=== PATIENT | female | born 1960 | race Two or more races ===

== ENCOUNTER 2023-03-13 17:05 | Inpatient (IN) | payer MEDICAID ==
[~2023-03-13] VITALS: Ht 162.6 cm; Wt 91.4 kg
[2023-03-13 18:30] VITALS: PULSE 103; RESP 12; O2SAT 93
[2023-03-13 18:38] LABS: Basophils # (auto) 0 10 ^3/uL (0-0.2); Basophils % (auto) 0.1 % (0.0-2.0); Eosinophils # (auto) 0 10 ^3/uL (0-0.8); Eosinophils % (auto) 0.1 % (0.0-7.0); Hemoglobin 9.5 g/dL (12.2-16.2); Lymphocytes # (auto) 1.7 10 ^3/uL (0.4-5.4); Mean Corpuscular Volume 85.5 fL (80.0-100.0); Monocytes # (auto) 1.1 10 ^3/uL (0-1.3); Monocytes % (auto) 6.2 % (0.0-12.0); Nucleated Red Blood Cells % 0.1 %
[2023-03-13 18:40] LABS: Hematocrit 31.1 % (36.0-46.0); Lymphocytes % (auto) 9.5 % (10.0-50.0); Mean Corpuscular Hemoglobin 26.2 pg (28.0-32.0); Mean Corpuscular Hgb Conc. 30.7 g/dL (32.0-36.0); Neutrophils # (auto) 14.7 10 ^3/uL (1.6-8.6); Neutrophils % (auto) 84.1 % (37.0-80.0); Red Blood Cells 3.64 10^6/uL (4.0-5.20); Red Cell Distribution Width 19.3 % (11.8-14.3); White Blood Cell 17.5 10^3/uL (4.4-10.8)
[2023-03-13] MEDS: SODIUM CHLORIDE 0.9% 1,000 ML IV ONE (18:41)
[2023-03-13 18:49] LABS: Urine Epithelial Cast None Seen /hpf (<5)
[2023-03-13 18:54] LABS: Urine Bacteria FEW /hpf (None Seen); Urine Blood 2+ /uL (Negative); Urine Budding Yeast MODERATE /hpf (None Seen); Urine Clarity HAZY (Clear); Urine Color Yellow (Yellow); Urine Protein, UAD 2+ (Negative); Urine Specific Gravity 1.022 (1.001-1.035); Urine Urobilinogen Normal (Negative); Urine WBC 83 /hpf (0 - 5)
[2023-03-13 18:55] LABS: Alanine Aminotransferase 13 U/L (7-40); Albumin 2.4 g/dL (3.2-4.8); Alkaline Phosphatase 134 U/L (46-116); Anion Gap 7 (5-15); Aspartate Aminotransferase 19 U/L (13-40); BUN/Creatinine Ratio 18.3 (10.0-20.0); Bilirubin, Total < 0.2 mg/dL (0.2-1.0); Blood Urea Nitrogen 15 mg/dL (9-23); Calcium 8.1 mg/dL (8.7-10.4); Carbon Dioxide 22 mmol/L (20-30); Chloride 108 mmol/L (98-107); Glucose 181 mg/dL (74-106); Lipase 21 U/L (12-53); Potassium 4.1 mmol/L (3.5-5.1); Sodium 137 mmol/L (136-145); Total Protein 4.6 g/dL (5.7-8.2)
[2023-03-13 19:30] VITALS: PULSE 98; RESP 14; O2SAT 98
[2023-03-13] MEDS ORDERED: HYDROcodone-ACET 5/325MG TAB PO PRN (21:30)
[2023-03-13] MEDS ORDERED: DOCUSATE SOD 100 MG CAP PO PRN (21:30)
[2023-03-13] MEDS ORDERED: TEMAZEPAM 15 MG CAP PO PRN (21:30)
[2023-03-13] MEDS ORDERED: MORPHINE SULFATE INJ 2 MG/ml SYRG IV PRN (21:30)
[2023-03-13] MEDS ORDERED: DEXTROSE (50%) 50ML SYRG IV PRN (21:30)
[2023-03-13] MEDS ORDERED: LORazepam 0.5 MG TAB PO PRN (21:30)
[2023-03-13] MEDS: HYDROmorphone HCL 2 MG/ML VL/or syr IM ONE (21:38)
[2023-03-13] MEDS: ONDANSETRON ODT 4 MG TAB PO ONE (21:38)
[2023-03-13] MEDS: KETOROLAC TROMETH 30 MG/ML 1ML VIAL IV ONE (21:42)
[2023-03-13] MEDS: SODIUM CHLORIDE 0.9% 1,000 ML IV SCH (22:23)
[2023-03-13] MEDS: cefTRIAXone 1GM/50ML D5W 50 ML IV NR (22:57)
[2023-03-13] MEDS: CEFTRIAXONE SODIUM 2 GM in D5W 5% 100 ML IV ONE (22:58)
[2023-03-13] MEDS: ACCU-CHEK COMFORT CURVE STRIP VI SCH (23:59)
[2023-03-14] MEDS: InsuLIN REG 1unit/0.01ml Soln (100units/ml) SC SCH (00:02)
[2023-03-14 05:39] LABS: Basophils # (auto) 0.1 10 ^3/uL (0-0.2); Basophils % (auto) 0.3 % (0.0-2.0); Hematocrit 29.7 % (36.0-46.0); Lymphocytes # (auto) 2.2 10 ^3/uL (0.4-5.4); Neutrophils # (auto) 14.7 10 ^3/uL (1.6-8.6); Red Cell Distribution Width 19.3 % (11.8-14.3)
[2023-03-14 05:43] LABS: Anion Gap 7 (5-15); Carbon Dioxide 24 mmol/L (20-30); Chloride 108 mmol/L (98-107); Potassium 3.9 mmol/L (3.5-5.1); Sodium 139 mmol/L (136-145)
[2023-03-14 05:44] LABS: Calcium 8.8 mg/dL (8.5-10.1); Eosinophils # (auto) 0 10 ^3/uL (0-0.8); Eosinophils % (auto) 0.3 % (0.0-7.0); Hemoglobin 9.2 g/dL (12.2-16.2); Mean Corpuscular Hemoglobin 27.1 pg (28.0-32.0); Mean Corpuscular Volume 87.3 fL (80.0-100.0); Monocytes # (auto) 1.5 10 ^3/uL (0-1.3); Monocytes % (auto) 8.1 % (0.0-12.0); Neutrophils % (auto) 79.3 % (37.0-80.0); White Blood Cell 18.6 10^3/uL (4.4-10.8)
[2023-03-14 05:49] LABS: BUN/Creatinine Ratio 14.9 (10.0-20.0); Blood Urea Nitrogen 14 mg/dL (9-23); Glucose 130 mg/dL (74-106); Triglycerides 92 mg/dL (< 150)
[2023-03-14 05:50] LABS: LDL Cholesterol 38 mg/dL (< 100)
[2023-03-14 05:51] LABS: Cholesterol 79 mg/dL (< 200); HDL Cholesterol 24 mg/dL (40-59)
[2023-03-14 07:35] VITALS: PULSE 95; RESP 14; O2SAT 95
[2023-03-14] MEDS: cefTRIAXone 1GM/50ML D5W 50 ML IV SCH (10:42)
[2023-03-14] MEDS: ENOXAPARIN SOD 40 MG/0.4 ML SYRINGE SC SCH (10:42)
[2023-03-14] MEDS ORDERED: VANCOMYCIN PER PHARMACY 0 MG IV SCH (16:30)
[2023-03-14 17:26] VITALS: O2SAT 97
[2023-03-14 17:42] VITALS: BP 129/59; PULSE 105; RESP 16; TEMP 98.5; O2SAT 100
[2023-03-14] MEDS: VANCOMYCIN 1GM/200ML 200 ML IV ONE (17:47)
[2023-03-14 20:00] VITALS: BP 121/37; PULSE 101; RESP 17; TEMP 98.6; O2SAT 97
[2023-03-14 22:00] VITALS: BP 121/37; PULSE 101; RESP 17; TEMP 98.6; O2SAT 98
[2023-03-14] MEDS: MAALOX PLUS or MAALOX 30 ML PO PRN (22:28)
[2023-03-15] VITALS (7 sets, daily range): BP systolic 109–163; BP diastolic 44–65; PULSE 62–98; RESP 16–20; TEMP 97.9–98.4; O2SAT 93–99
[2023-03-15] MEDS: ACETAMINOPHEN 325 MG TAB PO PRN (01:43)
[2023-03-15] MEDS: ONDANSETRON HCL 4 MG/2 ML VIAL IV PRN (02:23)
[2023-03-15] MEDS: VANCOMYCIN 1GM/200ML 200 ML IV SCH (05:35)
[2023-03-15 06:13] LABS: Albumin 2.4 g/dL (3.2-4.8); Alkaline Phosphatase 131 U/L (46-116); Anion Gap 10 (5-15); Aspartate Aminotransferase 10 U/L (13-40); BUN/Creatinine Ratio 23.8 (10.0-20.0); Blood Urea Nitrogen 19 mg/dL (9-23); Calcium 8.4 mg/dL (8.5-10.1); Carbon Dioxide 22 mmol/L (20-30); Chloride 106 mmol/L (98-107); Glucose 116 mg/dL (74-106); Potassium 3.7 mmol/L (3.5-5.1); Sodium 138 mmol/L (136-145)
[2023-03-15 06:14] LABS: Bilirubin, Total 0.2 mg/dL (0.2-1.0); Total Protein 4.6 g/dL (5.7-8.2)
[2023-03-15 06:17] LABS: Alanine Aminotransferase < 9 U/L (7-40)
[2023-03-15] MEDS: MICAFUNGIN SODIUM 100 MG in SODIUM CHL 0.9% 100 ML IV SCH (14:52)
[2023-03-15] MEDS: METOCLOPRAMIDE HCL 5MG/ml INJ 2ml VIAL IV ONE (16:15)
[2023-03-15] MEDS: METOCLOPRAMIDE HCL 5MG/ml INJ 2ml VIAL IV SCH (21:41)
[2023-03-15] MEDS: MUPIROCIN 2% OINT 15gm or 22gm FOR MRSA NARES EACHNOSTRI SCH (21:42)
[2023-03-16 04:14] LABS: Basophils # (auto) 0.1 10 ^3/uL (0-0.2); Basophils % (auto) 0.5 % (0.0-2.0); Hematocrit 25.3 % (36.0-46.0); Monocytes # (auto) 0.8 10 ^3/uL (0-1.3); Monocytes % (auto) 5.9 % (0.0-12.0); Red Blood Cells 2.99 10^6/uL (4.0-5.20)
[2023-03-16 04:16] LABS: Eosinophils # (auto) 0.1 10 ^3/uL (0-0.8); Hemoglobin 7.9 g/dL (12.2-16.2); Lymphocytes # (auto) 2.3 10 ^3/uL (0.4-5.4); Lymphocytes % (auto) 16.7 % (10.0-50.0); Mean Corpuscular Hemoglobin 26.6 pg (28.0-32.0); Mean Corpuscular Hgb Conc. 31.4 g/dL (32.0-36.0); Mean Corpuscular Volume 84.7 fL (80.0-100.0); Neutrophils # (auto) 10.6 10 ^3/uL (1.6-8.6); Neutrophils % (auto) 75.9 % (37.0-80.0); Nucleated Red Blood Cells % 0.1 %; Red Cell Distribution Width 19.6 % (11.8-14.3)
[2023-03-16 04:21] LABS: Chloride 107 mmol/L (98-107); Potassium 3.8 mmol/L (3.5-5.1); Sodium 138 mmol/L (136-145)
[2023-03-16 04:22] LABS: Anion Gap 8 (5-15); Calcium 8.4 mg/dL (8.5-10.1); Carbon Dioxide 23 mmol/L (20-30)
[2023-03-16 04:27] LABS: BUN/Creatinine Ratio 24.2 (10.0-20.0); Blood Urea Nitrogen 15 mg/dL (9-23); Glucose 106 mg/dL (74-106)
[2023-03-16 09:00] VITALS: BP 159/53; PULSE 96; RESP 16; TEMP 98.3; O2SAT 96
[2023-03-16 13:00] VITALS: BP 120/48; PULSE 90; RESP 18; TEMP 98; O2SAT 94
[2023-03-16] MEDS: VANCOMYCIN 1GM/200ML 200 ML IV SCH (16:47)
[2023-03-16 17:00] VITALS: BP 122/43; PULSE 92; RESP 20; TEMP 98.3; O2SAT 96
[2023-03-16 20:00] VITALS: BP 139/64; PULSE 91; RESP 18; TEMP 98.7; O2SAT 95
[2023-03-16 22:00] VITALS: BP 139/64; PULSE 91; RESP 18; TEMP 98.7; O2SAT 95
[2023-03-17] VITALS (7 sets, daily range): BP systolic 140–162; BP diastolic 48–72; PULSE 94–96; RESP 16–20; TEMP 97.6–98.6; O2SAT 94–99
[2023-03-17 06:01] LABS: Basophils # (auto) 0 10 ^3/uL (0-0.2); Eosinophils # (auto) 0.2 10 ^3/uL (0-0.8); Hemoglobin 7.3 g/dL (12.2-16.2); Monocytes # (auto) 0.8 10 ^3/uL (0-1.3); White Blood Cell 12.8 10^3/uL (4.4-10.8)
[2023-03-17 06:04] LABS: Basophils % (auto) 0.3 % (0.0-2.0); Eosinophils % (auto) 1.3 % (0.0-7.0); Lymphocytes # (auto) 2.5 10 ^3/uL (0.4-5.4); Lymphocytes % (auto) 19.5 % (10.0-50.0); Mean Corpuscular Hemoglobin 26.6 pg (28.0-32.0); Mean Corpuscular Hgb Conc. 31.8 g/dL (32.0-36.0); Mean Corpuscular Volume 83.5 fL (80.0-100.0); Monocytes % (auto) 6.3 % (0.0-12.0); Neutrophils # (auto) 9.3 10 ^3/uL (1.6-8.6); Neutrophils % (auto) 72.6 % (37.0-80.0); Red Blood Cells 2.76 10^6/uL (4.0-5.20); Red Cell Distribution Width 18.8 % (11.8-14.3)
[2023-03-17 06:10] LABS: Chloride 106 mmol/L (98-107); Potassium 3.7 mmol/L (3.5-5.1); Sodium 137 mmol/L (136-145)
[2023-03-17 06:11] LABS: Anion Gap 8 (5-15); Carbon Dioxide 23 mmol/L (20-30)
[2023-03-17 06:16] LABS: BUN/Creatinine Ratio 25.5 (10.0-20.0); Blood Urea Nitrogen 13 mg/dL (9-23); Glucose 120 mg/dL (74-106)
[2023-03-17] MEDS: METOCLOPRAMIDE HCL 5MG/ml INJ 2ml VIAL IV PRN (18:38)
[2023-03-18] VITALS (7 sets, daily range): BP systolic 149–182; BP diastolic 43–71; PULSE 85–96; RESP 16–22; TEMP 97.9–98.5; O2SAT 95–100
[2023-03-18] MEDS: VANCOMYCIN 1GM/200ML 200 ML IV SCH (08:04)
[2023-03-18] MEDS: POLYETHYLENE GLYCOL 17 GM PWDR PO ONE (10:54)
[2023-03-18] MEDS: ENOXAPARIN SOD 40 MG/0.4 ML SYRINGE SC SCH (10:55)
[2023-03-18 13:25] LABS: Erythrocyte Sedimentation Rate 72 mm/hr (0-20)
[2023-03-18] MEDS: AMPICILLIN & SULBACTAM SODIUM 3 GM in SODIUM CHL 0.9% 100 ML IV SCH ×2 (14:08→22:09)
[2023-03-18] MEDS: FUROSEMIDE 20 MG TAB PO SCH (14:08)
[2023-03-18] MEDS: DOCUSATE SOD 100 MG CAP PO SCH (22:09)
[2023-03-19 05:00] VITALS: BP 151/71; PULSE 100; RESP 20; TEMP 98.2; O2SAT 95
[2023-03-19 07:28] LABS: Eosinophils # (auto) 0.2 10 ^3/uL (0-0.8); Hemoglobin 7.8 g/dL (12.2-16.2)
[2023-03-19 07:30] LABS: Basophils # (auto) 0 10 ^3/uL (0-0.2); Basophils % (auto) 0.3 % (0.0-2.0); Eosinophils % (auto) 1.7 % (0.0-7.0); Hematocrit 24.5 % (36.0-46.0); Lymphocytes # (auto) 2.5 10 ^3/uL (0.4-5.4); Lymphocytes % (auto) 18.4 % (10.0-50.0); Mean Corpuscular Hemoglobin 26.9 pg (28.0-32.0); Mean Corpuscular Volume 84.2 fL (80.0-100.0); Monocytes # (auto) 0.9 10 ^3/uL (0-1.3); Monocytes % (auto) 6.6 % (0.0-12.0); Neutrophils # (auto) 9.8 10 ^3/uL (1.6-8.6); Red Blood Cells 2.91 10^6/uL (4.0-5.20); Red Cell Distribution Width 18.8 % (11.8-14.3); White Blood Cell 13.4 10^3/uL (4.4-10.8)
[2023-03-19 08:00] VITALS: BP 174/47; PULSE 100; RESP 18; TEMP 99; O2SAT 94
[2023-03-19 08:17] LABS: Calcium 8.3 mg/dL (8.5-10.1); Chloride 107 mmol/L (98-107); Potassium 3.7 mmol/L (3.5-5.1); Sodium 139 mmol/L (136-145)
[2023-03-19 08:18] LABS: Anion Gap 7 (5-15); Carbon Dioxide 25 mmol/L (20-30)
[2023-03-19 08:23] LABS: BUN/Creatinine Ratio 22.4 (10.0-20.0); Blood Urea Nitrogen 11 mg/dL (9-23); Glucose 135 mg/dL (74-106)
[2023-03-19 09:00] VITALS: BP 174/47; PULSE 100; RESP 18; TEMP 99; O2SAT 94
[2023-03-19] MEDS: FLUCONAZOLE 100 MG TAB PO SCH (09:30)
[2023-03-19 13:00] VITALS: BP 169/72; PULSE 88; RESP 15; TEMP 97.9; O2SAT 96
[2023-03-19] MEDS: amLODIPine BESYLATE 5 MG TAB PO ONE (15:12)
[2023-03-19 16:42] VITALS: BP 158/65; PULSE 90; RESP 17; TEMP 98.1; O2SAT 98
[2023-03-19 22:00] VITALS: BP 132/43; PULSE 92; RESP 20; TEMP 98.3; O2SAT 95
[2023-03-20] VITALS (8 sets, daily range): BP systolic 106–162; BP diastolic 44–63; PULSE 85–99; RESP 18–20; TEMP 98.2–98.7; O2SAT 92–97
[2023-03-20] MEDS: amLODIPine BESYLATE 5 MG TAB PO SCH (09:41)
[2023-03-20] MEDS: levoFLOXacin 500MG 100 ML IV SCH (11:48)
[2023-03-20] MEDS: LISINOPRIL 10 MG TAB PO SCH (11:48)
[2023-03-20] MEDS: ENOXAPARIN SOD 120 MG/0.8 ML SYRINGE SC SCH (22:25)
[2023-03-21] VITALS (7 sets, daily range): BP systolic 126–162; BP diastolic 31–59; PULSE 85–98; RESP 18–20; TEMP 97.9–98.7; O2SAT 94–96
[2023-03-22 05:00] VITALS: BP 161/51; PULSE 96; RESP 18; TEMP 98; O2SAT 98
[2023-03-22 06:31] LABS: Eosinophils # (auto) 0.3 10 ^3/uL (0-0.8); Lymphocytes # (auto) 2.2 10 ^3/uL (0.4-5.4); Monocytes # (auto) 0.7 10 ^3/uL (0-1.3)
[2023-03-22 06:33] LABS: Basophils # (auto) 0 10 ^3/uL (0-0.2); Basophils % (auto) 0.4 % (0.0-2.0); Eosinophils % (auto) 2.6 % (0.0-7.0); Hematocrit 24.2 % (36.0-46.0); Lymphocytes % (auto) 21.2 % (10.0-50.0); Mean Corpuscular Hemoglobin 27.1 pg (28.0-32.0); Mean Corpuscular Volume 82.3 fL (80.0-100.0); Monocytes % (auto) 6.8 % (0.0-12.0); Neutrophils # (auto) 7.1 10 ^3/uL (1.6-8.6); Red Blood Cells 2.94 10^6/uL (4.0-5.20); Red Cell Distribution Width 19.9 % (11.8-14.3); White Blood Cell 10.3 10^3/uL (4.4-10.8)
[2023-03-22 06:34] LABS: Anion Gap 5 (5-15); Calcium 8.2 mg/dL (8.5-10.1); Carbon Dioxide 28 mmol/L (20-30); Chloride 106 mmol/L (98-107); Potassium 3.1 mmol/L (3.5-5.1); Sodium 139 mmol/L (136-145)
[2023-03-22 06:40] LABS: Glucose 138 mg/dL (74-106)
[2023-03-22 08:03] LABS: Blood Urea Nitrogen 8 mg/dL (9-23)
[2023-03-22 09:00] VITALS: BP 137/58; PULSE 98; RESP 20; TEMP 98.2; O2SAT 95
[2023-03-22] MEDS: POTASSIUM EFFERVESENT TAB 25 MEQ PO ONE (12:38)
[2023-03-22] MEDS: POTASSIUM EFFERVESENT TAB 25 MEQ PO SCH (12:39)
[2023-03-22] MEDS: PANTOPRAZOLE 40 MG TAB PO SCH (12:39)
[2023-03-22] MEDS: FLORASTOR (S. BOULARDII) 250 MG CAP PO SCH (12:39)
[2023-03-22 13:41] VITALS: BP 141/40; PULSE 88; RESP 20; TEMP 98.5; O2SAT 96
[2023-03-22 16:58] VITALS: BP 126/38; PULSE 91; RESP 20; TEMP 98.1; O2SAT 96
[2023-03-22 20:00] VITALS: PULSE 90; RESP 18; O2SAT 96
[2023-03-22] MEDS: MEROPENEM 1GM IVPB 50 ML IV SCH (22:00)
[2023-03-22 22:10] VITALS: BP 137/70; PULSE 90; RESP 18; TEMP 98.6; O2SAT 96
[2023-03-23 05:16] LABS: Eosinophils # (auto) 0.2 10 ^3/uL (0-0.8); Eosinophils % (auto) 2.4 % (0.0-7.0); Hemoglobin 7.8 g/dL (12.2-16.2); Lymphocytes # (auto) 2.3 10 ^3/uL (0.4-5.4); Monocytes # (auto) 0.6 10 ^3/uL (0-1.3); Nucleated Red Blood Cells % 0.1 %; White Blood Cell 9.1 10^3/uL (4.4-10.8)
[2023-03-23 05:19] LABS: Basophils # (auto) 0.1 10 ^3/uL (0-0.2); Basophils % (auto) 0.6 % (0.0-2.0); Hematocrit 24.7 % (36.0-46.0); Lymphocytes % (auto) 25.6 % (10.0-50.0); Mean Corpuscular Hemoglobin 26.6 pg (28.0-32.0); Mean Corpuscular Hgb Conc. 31.8 g/dL (32.0-36.0); Mean Corpuscular Volume 83.6 fL (80.0-100.0); Monocytes % (auto) 6.5 % (0.0-12.0); Neutrophils # (auto) 5.9 10 ^3/uL (1.6-8.6); Neutrophils % (auto) 64.9 % (37.0-80.0); Red Blood Cells 2.95 10^6/uL (4.0-5.20)
[2023-03-23 05:20] VITALS: BP 148/56; PULSE 92; RESP 20; TEMP 97.8; O2SAT 97
[2023-03-23 05:26] LABS: Anion Gap 6 (5-15); Carbon Dioxide 28 mmol/L (20-30); Chloride 106 mmol/L (98-107); Potassium 3.5 mmol/L (3.5-5.1); Sodium 140 mmol/L (136-145)
[2023-03-23 05:27] LABS: Calcium 7.8 mg/dL (8.7-10.4)
[2023-03-23 05:31] LABS: Red Cell Distribution Width 20.6 % (11.8-14.3)
[2023-03-23 05:32] LABS: BUN/Creatinine Ratio 14.6 (10.0-20.0); Blood Urea Nitrogen 6 mg/dL (9-23); Glucose 98 mg/dL (74-106)
[2023-03-23 05:33] LABS: Magnesium 1.2 mg/dL (1.6-2.6)
[2023-03-23 06:18] LABS: Erythrocyte Sedimentation Rate 103 mm/hr (0-20)
[2023-03-23 09:25] VITALS: BP 124/50; PULSE 89; RESP 20; TEMP 98.8; O2SAT 96
[2023-03-23 12:32] VITALS: BP 119/54; PULSE 91; RESP 20; TEMP 98.7; O2SAT 97
[2023-03-23] MEDS: MAGNESIUM SULFATE 1GM/100ML 100 ML IV SCH (14:43)
[2023-03-23 16:33] VITALS: BP 119/37; PULSE 92; RESP 20; TEMP 99.9; O2SAT 97
[2023-03-23] MEDS: LINEZOLID 600MG TABLET PO SCH (21:13)
[2023-03-23 22:00] VITALS: BP 118/55; PULSE 94; RESP 17; TEMP 98.6; O2SAT 97
[2023-03-24] VITALS (7 sets, daily range): BP systolic 100–148; BP diastolic 39–64; PULSE 79–95; RESP 18–20; TEMP 97.6–98.4; O2SAT 95–100
[2023-03-24 06:41] LABS: Basophils # (auto) 0.1 10 ^3/uL (0-0.2); Basophils % (auto) 1.2 % (0.0-2.0); Eosinophils # (auto) 0.2 10 ^3/uL (0-0.8); Eosinophils % (auto) 1.9 % (0.0-7.0); Mean Corpuscular Hemoglobin 26.8 pg (28.0-32.0); Mean Corpuscular Hgb Conc. 32.1 g/dL (32.0-36.0); Monocytes # (auto) 0.7 10 ^3/uL (0-1.3); Nucleated Red Blood Cells % 0.1 %; Red Blood Cells 2.89 10^6/uL (4.0-5.20)
[2023-03-24 06:44] LABS: Chloride 105 mmol/L (98-107); Hematocrit 24.2 % (36.0-46.0); Hemoglobin 7.8 g/dL (12.2-16.2); Lymphocytes # (auto) 2.2 10 ^3/uL (0.4-5.4); Lymphocytes % (auto) 21.9 % (10.0-50.0); Mean Corpuscular Volume 83.6 fL (80.0-100.0); Monocytes % (auto) 6.7 % (0.0-12.0); Neutrophils % (auto) 68.3 % (37.0-80.0); Potassium 3.5 mmol/L (3.5-5.1); Red Cell Distribution Width 19.8 % (11.8-14.3); Sodium 137 mmol/L (136-145); White Blood Cell 10.3 10^3/uL (4.4-10.8)
[2023-03-24 06:45] LABS: Calcium 7.7 mg/dL (8.7-10.4)
[2023-03-24 06:50] LABS: Blood Urea Nitrogen 6 mg/dL (9-23); Glucose 138 mg/dL (74-106)
[2023-03-24 06:51] LABS: Magnesium 1.6 mg/dL (1.6-2.6)
[2023-03-24 08:19] LABS: Anion Gap 5 (5-15); Carbon Dioxide 27 mmol/L (20-30)
[2023-03-24 08:20] LABS: BUN/Creatinine Ratio 13.6 (10.0-20.0)
[2023-03-25] VITALS (7 sets, daily range): BP systolic 103–147; BP diastolic 49–56; PULSE 85–98; RESP 16–20; TEMP 98–98.9; O2SAT 93–97
[2023-03-26] VITALS (7 sets, daily range): BP systolic 99–161; BP diastolic 51–92; PULSE 60–98; RESP 14–20; TEMP 97.6–98.4; O2SAT 94–96
[2023-03-26 06:26] LABS: Nucleated Red Blood Cells % 0.1 %; White Blood Cell 8.7 10^3/uL (4.4-10.8)
[2023-03-26 06:29] LABS: Anion Gap 4 (5-15); Carbon Dioxide 28 mmol/L (20-30); Chloride 103 mmol/L (98-107); Potassium 3.8 mmol/L (3.5-5.1); Sodium 135 mmol/L (136-145)
[2023-03-26 06:30] LABS: Basophils # (auto) 0.1 10 ^3/uL (0-0.2); Basophils % (auto) 0.8 % (0.0-2.0); Calcium 8.1 mg/dL (8.7-10.4); Eosinophils # (auto) 0.4 10 ^3/uL (0-0.8); Eosinophils % (auto) 4.6 % (0.0-7.0); Hematocrit 25.3 % (36.0-46.0); Lymphocytes # (auto) 2.4 10 ^3/uL (0.4-5.4); Lymphocytes % (auto) 27.9 % (10.0-50.0); Mean Corpuscular Hemoglobin 26.4 pg (28.0-32.0); Mean Corpuscular Hgb Conc. 31.7 g/dL (32.0-36.0); Mean Corpuscular Volume 83.3 fL (80.0-100.0); Monocytes # (auto) 0.7 10 ^3/uL (0-1.3); Monocytes % (auto) 8.4 % (0.0-12.0); Neutrophils # (auto) 5.1 10 ^3/uL (1.6-8.6); Neutrophils % (auto) 58.3 % (37.0-80.0); Red Blood Cells 3.04 10^6/uL (4.0-5.20)
[2023-03-26 06:35] LABS: BUN/Creatinine Ratio 15.7 (10.0-20.0); Blood Urea Nitrogen 8 mg/dL (9-23); Glucose 101 mg/dL (74-106); Red Cell Distribution Width 20.4 % (11.8-14.3)
[2023-03-27] VITALS (7 sets, daily range): BP systolic 105–156; BP diastolic 40–66; PULSE 86–97; RESP 16–20; TEMP 98–98.3; O2SAT 94–96
[2023-03-28] VITALS (7 sets, daily range): BP systolic 120–138; BP diastolic 46–62; PULSE 89–98; RESP 16–18; TEMP 98.2–98.6; O2SAT 95–98
[2023-03-28 08:53] LABS: Basophils # (auto) 0.1 10 ^3/uL (0-0.2); Basophils % (auto) 0.7 % (0.0-2.0); Eosinophils # (auto) 0.4 10 ^3/uL (0-0.8); Eosinophils % (auto) 4.6 % (0.0-7.0); Hematocrit 27.8 % (36.0-46.0); Hemoglobin 8.5 g/dL (12.2-16.2); Lymphocytes # (auto) 2.3 10 ^3/uL (0.4-5.4); Lymphocytes % (auto) 29.2 % (10.0-50.0); Mean Corpuscular Hemoglobin 25.8 pg (28.0-32.0); Mean Corpuscular Hgb Conc. 30.6 g/dL (32.0-36.0); Mean Corpuscular Volume 84.5 fL (80.0-100.0); Monocytes # (auto) 0.5 10 ^3/uL (0-1.3); Monocytes % (auto) 6.8 % (0.0-12.0); Neutrophils # (auto) 4.6 10 ^3/uL (1.6-8.6); Neutrophils % (auto) 58.7 % (37.0-80.0); Nucleated Red Blood Cells % 0.1 %; Red Blood Cells 3.29 10^6/uL (4.0-5.20); Red Cell Distribution Width 19.6 % (11.8-14.3); White Blood Cell 7.8 10^3/uL (4.4-10.8)
[2023-03-28 09:10] LABS: Albumin 2.7 g/dL (3.2-4.8); Alkaline Phosphatase 80 U/L (46-116); Anion Gap 4 (5-15); Aspartate Aminotransferase 14 U/L (13-40); BUN/Creatinine Ratio 19.6 (10.0-20.0); Blood Urea Nitrogen 9 mg/dL (9-23); Carbon Dioxide 28 mmol/L (20-30); Chloride 103 mmol/L (98-107); Glucose 98 mg/dL (74-106); Sodium 135 mmol/L (136-145)
[2023-03-28 09:11] LABS: Bilirubin, Total 0.2 mg/dL (0.2-1.0)
[2023-03-28 09:29] LABS: Alanine Aminotransferase < 9 U/L (7-40)
[2023-03-28] MEDS: APIXABAN 5 MG TAB PO SCH (11:28)
[2023-03-28] MEDS: Ensure HIGH Protein Chocolate 8oz Bottle PO SCH (11:31)
[2023-03-29 05:00] VITALS: BP 120/52; PULSE 93; RESP 16; TEMP 98; O2SAT 96
[2023-03-29 09:00] VITALS: BP 127/52; PULSE 93; RESP 17; TEMP 97.9; O2SAT 98
[2023-03-29 12:39] VITALS: BP 113/47; PULSE 95; RESP 17; TEMP 98; O2SAT 96
[2023-03-29 17:00] VITALS: BP 116/47; PULSE 95; RESP 17; TEMP 98.5; O2SAT 94
[2023-03-29 22:00] VITALS: BP 111/42; PULSE 97; RESP 18; TEMP 98.6; O2SAT 93
[2023-03-30 05:00] VITALS: BP 118/42; PULSE 97; RESP 18; TEMP 98.4; O2SAT 96
[2023-03-30 08:00] VITALS: BP 131/58; PULSE 98; RESP 19; TEMP 97.6; O2SAT 95
[2023-03-30 09:06] VITALS: BP 131/58; PULSE 98; RESP 19; TEMP 97.6; O2SAT 95
[2023-03-30 13:12] VITALS: BP 115/59; PULSE 95; RESP 19; TEMP 98.9; O2SAT 95
[2023-03-30 16:34] VITALS: BP 119/60; PULSE 96; RESP 19; TEMP 98.7; O2SAT 97
[2023-03-30 22:00] VITALS: BP 146/56; PULSE 102; RESP 20; TEMP 99.9; O2SAT 94
[2023-03-31] VITALS (7 sets, daily range): BP systolic 113–141; BP diastolic 45–60; PULSE 93–99; RESP 17–20; TEMP 97.9–98.6; O2SAT 94–96
[2023-03-31 06:41] LABS: Eosinophils # (auto) 0.4 10 ^3/uL (0-0.8); Eosinophils % (auto) 4.9 % (0.0-7.0); Hemoglobin 7.9 g/dL (12.2-16.2); Mean Corpuscular Hemoglobin 26.5 pg (28.0-32.0); Mean Corpuscular Hgb Conc. 31.7 g/dL (32.0-36.0); Monocytes # (auto) 0.6 10 ^3/uL (0-1.3); White Blood Cell 8.1 10^3/uL (4.4-10.8)
[2023-03-31 06:42] LABS: Calcium 8.1 mg/dL (8.7-10.4); Chloride 103 mmol/L (98-107); Sodium 135 mmol/L (136-145)
[2023-03-31 06:43] LABS: Anion Gap 5 (5-15); Carbon Dioxide 27 mmol/L (20-30)
[2023-03-31 06:45] LABS: Basophils # (auto) 0.1 10 ^3/uL (0-0.2); Basophils % (auto) 0.7 % (0.0-2.0); Lymphocytes # (auto) 2.7 10 ^3/uL (0.4-5.4); Lymphocytes % (auto) 33.8 % (10.0-50.0); Mean Corpuscular Volume 83.5 fL (80.0-100.0); Monocytes % (auto) 7.8 % (0.0-12.0); Neutrophils # (auto) 4.3 10 ^3/uL (1.6-8.6); Neutrophils % (auto) 52.8 % (37.0-80.0); Nucleated Red Blood Cells % 0.1 %; Red Blood Cells 2.99 10^6/uL (4.0-5.20); Red Cell Distribution Width 19.5 % (11.8-14.3)
[2023-03-31 06:48] LABS: BUN/Creatinine Ratio 22.6 (10.0-20.0); Blood Urea Nitrogen 12 mg/dL (9-23); Glucose 127 mg/dL (74-106)
[2023-03-31 07:47] LABS: Erythrocyte Sedimentation Rate 103 mm/hr (0-20)
[2023-03-31] MEDS: MULTIPLE VITAMIN TAB PO SCH (11:15)
[2023-03-31 19:57] LABS: Urine Bacteria NONE SEEN /hpf (None Seen); Urine Blood TRACE /uL (Negative); Urine Clarity Clear (Clear); Urine Color Colorless (Yellow); Urine Protein, UAD 1+ (Negative); Urine Specific Gravity 1.013 (1.001-1.035); Urine Urobilinogen Normal (Negative); Urine WBC 1 /hpf (0 - 5)
[2023-04-01] VITALS (7 sets, daily range): BP systolic 101–178; BP diastolic 52–72; PULSE 71–97; RESP 16–20; TEMP 97.4–98.7; O2SAT 94–99
[2023-04-01] MEDS: DULoxetine HCL 30 MG CAP PO SCH (09:49)
[2023-04-02 05:00] VITALS: BP 141/59; PULSE 95; RESP 18; TEMP 98.4; O2SAT 96
[2023-04-02 08:00] VITALS: BP 141/57; PULSE 95; PULSE 96; RESP 18; TEMP 98.3; O2SAT 95
[2023-04-02 09:00] VITALS: BP 141/57; PULSE 96; RESP 18; TEMP 98.3; O2SAT 95
[2023-04-02 12:04] LABS: Basophils # (auto) 0.1 10 ^3/uL (0-0.2); Chloride 103 mmol/L (98-107); Hematocrit 25.3 % (36.0-46.0); Lymphocytes # (auto) 2.3 10 ^3/uL (0.4-5.4); Neutrophils % (auto) 55.8 % (37.0-80.0); Nucleated Red Blood Cells % 0.1 %; Potassium 3.9 mmol/L (3.5-5.1); Sodium 134 mmol/L (136-145)
[2023-04-02 12:05] LABS: Anion Gap 5 (5-15); Carbon Dioxide 26 mmol/L (20-30)
[2023-04-02 12:06] LABS: Basophils % (auto) 0.8 % (0.0-2.0); Calcium 8.4 mg/dL (8.5-10.1); Eosinophils # (auto) 0.2 10 ^3/uL (0-0.8); Eosinophils % (auto) 3.6 % (0.0-7.0); Hemoglobin 8.3 g/dL (12.2-16.2); Lymphocytes % (auto) 33.6 % (10.0-50.0); Mean Corpuscular Hgb Conc. 32.6 g/dL (32.0-36.0); Mean Corpuscular Volume 82.8 fL (80.0-100.0); Monocytes # (auto) 0.4 10 ^3/uL (0-1.3); Monocytes % (auto) 6.2 % (0.0-12.0); Neutrophils # (auto) 3.8 10 ^3/uL (1.6-8.6); Red Blood Cells 3.06 10^6/uL (4.0-5.20); Red Cell Distribution Width 19.1 % (11.8-14.3); White Blood Cell 6.8 10^3/uL (4.4-10.8)
[2023-04-02 12:11] LABS: BUN/Creatinine Ratio 20.5 (10.0-20.0); Blood Urea Nitrogen 9 mg/dL (9-23); Glucose 89 mg/dL (74-106)
[2023-04-02 12:51] VITALS: BP 133/53; PULSE 94; RESP 18; TEMP 98.9; O2SAT 96
[2023-04-02 16:43] VITALS: BP 119/52; PULSE 94; RESP 20; TEMP 98.4; O2SAT 94
[2023-04-02 22:00] VITALS: BP 114/43; PULSE 95; RESP 18; TEMP 98.2; O2SAT 96
[2023-04-03 05:00] VITALS: BP 143/44; PULSE 100; RESP 19; TEMP 98.4; O2SAT 93
[2023-04-03 08:00] VITALS: BP 133/57; PULSE 96; RESP 16; TEMP 98.6; O2SAT 97
[2023-04-03 08:42] VITALS: BP 133/57; PULSE 96; RESP 16; TEMP 98.6; O2SAT 97
[2023-04-03 13:00] VITALS: BP 124/59; PULSE 95; RESP 18; TEMP 98.1; O2SAT 98
[2023-04-03 21:00] VITALS: BP 122/46; PULSE 94; RESP 20; TEMP 98.1; O2SAT 96
[2023-04-04] VITALS (7 sets, daily range): BP systolic 103–139; BP diastolic 48–63; PULSE 92–104; RESP 16–20; TEMP 97.8–98.6; O2SAT 92–97
[2023-04-04] MEDS: APIXABAN 5 MG TAB PO SCH (11:36)
[2023-04-04] MEDS: METOCLOPRAMIDE HCL 5MG/ml INJ 2ml VIAL IV SCH (21:27)
[2023-04-04] MEDS: DAKINS QUARTER STR 0.125% (NaHypochlorite) 473 ML TOPICAL SOL TOP SCH (21:31)
[2023-04-05] VITALS (7 sets, daily range): BP systolic 112–140; BP diastolic 40–76; PULSE 88–100; RESP 17–19; TEMP 97.8–98.2; O2SAT 93–99
[2023-04-05] MEDS ORDERED: ERTAPENEM SOD INJ 1 GM in SODIUM CHL 0.9% 50 ML IV SCH (10:00)
[2023-04-05] MEDS: MICAFUNGIN SODIUM 100 MG in SODIUM CHL 0.9% 100 ML IV SCH (10:26)
[2023-04-06 04:50] VITALS: BP 140/57; PULSE 104; RESP 20; TEMP 97.9; O2SAT 95
[2023-04-06 08:00] VITALS: BP 157/67; PULSE 98; RESP 17; TEMP 98.2
[2023-04-06 08:42] VITALS: BP 157/67; PULSE 105; RESP 17; TEMP 98.2; O2SAT 93
[2023-04-06 11:42] VITALS: BP 100/41; PULSE 98; RESP 17; TEMP 97.4; O2SAT 96
[2023-04-06 21:06] VITALS: BP 100/35; PULSE 101; RESP 18; TEMP 98.5; O2SAT 96
[2023-04-07] VITALS (8 sets, daily range): BP systolic 130–157; BP diastolic 51–72; PULSE 96–106; RESP 16–19; TEMP 97.7–98.7; O2SAT 96–98
[2023-04-07] MEDS: traMADol HCL 50 MG TAB PO PRN (12:23)
[2023-04-08 05:00] VITALS: BP 138/61; PULSE 105; RESP 19; TEMP 98; O2SAT 97
[2023-04-08 08:00] VITALS: BP 122/53; PULSE 102; RESP 16; TEMP 98.5; O2SAT 98
[2023-04-08 08:02] LABS: Basophils # (auto) 0 10 ^3/uL (0-0.2); Hematocrit 27.1 % (36.0-46.0); Hemoglobin 8.6 g/dL (12.2-16.2); Nucleated Red Blood Cells % 0.1 %; Red Blood Cells 3.28 10^6/uL (4.0-5.20)
[2023-04-08 08:03] LABS: Chloride 105 mmol/L (98-107); Potassium 3.9 mmol/L (3.5-5.1); Sodium 138 mmol/L (136-145)
[2023-04-08 08:04] LABS: Anion Gap 6 (5-15); Carbon Dioxide 27 mmol/L (20-30)
[2023-04-08 08:05] LABS: Calcium 8.8 mg/dL (8.5-10.1)
[2023-04-08 08:07] LABS: Basophils % (auto) 0.5 % (0.0-2.0); Eosinophils # (auto) 0.3 10 ^3/uL (0-0.8); Eosinophils % (auto) 3.2 % (0.0-7.0); Lymphocytes # (auto) 2.7 10 ^3/uL (0.4-5.4); Mean Corpuscular Hemoglobin 26.4 pg (28.0-32.0); Mean Corpuscular Hgb Conc. 31.9 g/dL (32.0-36.0); Mean Corpuscular Volume 82.7 fL (80.0-100.0); Monocytes % (auto) 10.1 % (0.0-12.0); Neutrophils # (auto) 5.6 10 ^3/uL (1.6-8.6); Neutrophils % (auto) 58.2 % (37.0-80.0); White Blood Cell 9.6 10^3/uL (4.4-10.8)
[2023-04-08 08:08] LABS: Red Cell Distribution Width 20.2 % (11.8-14.3)
[2023-04-08 08:09] LABS: BUN/Creatinine Ratio 22.9 (10.0-20.0); Blood Urea Nitrogen 11 mg/dL (9-23); Glucose 121 mg/dL (74-106)
[2023-04-08 12:00] VITALS: BP 128/59; PULSE 97; RESP 16; TEMP 99; O2SAT 94
[2023-04-08 16:00] VITALS: BP 115/48; PULSE 106; RESP 16; TEMP 98.9; O2SAT 95
[2023-04-08 20:00] VITALS: BP 137/69; PULSE 87; PULSE 99; RESP 17; RESP 20; TEMP 98.2; O2SAT 99
[2023-04-08 22:00] VITALS: BP 137/49; PULSE 99; RESP 17; TEMP 98.2; O2SAT 94
[2023-04-08] MEDS: METOCLOPRAMIDE HCL 5MG/ml INJ 2ml VIAL IV SCH (22:00)
[2023-04-09] VITALS (7 sets, daily range): BP systolic 107–137; BP diastolic 53–75; PULSE 98–106; RESP 16–18; TEMP 97.9–98.8; O2SAT 96–98
[2023-04-09] MEDS: FLORASTOR (S. BOULARDII) 250 MG CAP PO SCH (10:36)
[2023-04-09 16:34] LABS: Urine Bacteria NONE SEEN /hpf (None Seen); Urine Blood 3+ /uL (Negative); Urine Clarity Clear (Clear); Urine Color Yellow (Yellow); Urine Mucus FEW (None Seen); Urine Protein, UAD 2+ (Negative); Urine Specific Gravity 1.015 (1.001-1.035); Urine Urobilinogen Normal (Negative); Urine WBC 15 /hpf (0 - 5)
[2023-04-10] VITALS (8 sets, daily range): BP systolic 95–121; BP diastolic 3–62; PULSE 95–114; RESP 18–20; TEMP 97.7–98.7; O2SAT 94–97
[2023-04-11 05:00] VITALS: BP 139/42; PULSE 107; RESP 20; TEMP 98.3; O2SAT 96
[2023-04-11 07:46] LABS: INR 1.16 (0.9-1.15); Partial Thromboplastin Time 34.3 SEC (24.5-34.5); Prothrombin Time 12.1 sec (9.3-11.8)
[2023-04-11 08:00] VITALS: PULSE 102; RESP 18; O2SAT 98
[2023-04-11 09:00] VITALS: BP 113/43; PULSE 102; RESP 18; TEMP 98.1; O2SAT 98
[2023-04-11 13:00] VITALS: BP 123/48; PULSE 100; RESP 17; TEMP 98; O2SAT 98
[2023-04-11 17:00] VITALS: BP 120/61; PULSE 103; RESP 17; TEMP 98.3; O2SAT 96
[2023-04-11 19:01] VITALS: BP 120/61; PULSE 103; RESP 17; TEMP 98.3; O2SAT 96
[2023-04-11 21:37] LABS: COVID19 ANTIGEN SOFIA FIA NEGATIVE (NEGATIVE)
== END 2023-04-11 20:15 | DRG 720 ==
LOC: ER 17:05 → EDBD 17:05 → OVERFLOW 21:17 → WEST WING 03-14 01:30 → EAST 03-27 21:11
PROVIDERS: ADMIT Hospitalist; ATTEND Family Medicine
DX: A41.9 Sepsis, unspecified organism (principal); L89.150 Pressure ulcer of sacral region, unstageable; E43 Unspecified severe protein-calorie malnutrition; L89.523 Pressure ulcer of left ankle, stage 3; I82.413 Acute embolism and thrombosis of femoral vein, bilateral; E11.21 Type 2 diabetes mellitus with diabetic nephropathy; D64.9 Anemia, unspecified; N30.90 Cystitis, unspecified without hematuria; N82.3 Fistula of vagina to large intestine; R62.7 Adult failure to thrive; E66.01 Morbid (severe) obesity due to excess calories; E78.5 Hyperlipidemia, unspecified; I10 Essential (primary) hypertension; K82.8 Other specified diseases of gallbladder; Z20.822 Contact with and (suspected) exposure to COVID-19; Z16.24 Resistance to multiple antibiotics; Z16.12 Extended spectrum beta lactamase (ESBL) resistance; Z16.22 Resistance to vancomycin related antibiotics; K80.20 Calculus of gallbladder without cholecystitis without obstruction; B95.62 Methicillin resistant Staphylococcus aureus infection as the cause of diseases classified elsewhere; B96.5 Pseudomonas (aeruginosa) (mallei) (pseudomallei) as the cause of diseases classified elsewhere; B95.2 Enterococcus as the cause of diseases classified elsewhere; B96.1 Klebsiella pneumoniae [K. pneumoniae] as the cause of diseases classified elsewhere; Z68.41 Body mass index [BMI] 40.0-44.9, adult; Z91.040 Latex allergy status; Z74.01 Bed confinement status; Z93.3 Colostomy status; Z85.3 Personal history of malignant neoplasm of breast; Z80.3 Family history of malignant neoplasm of breast; Z86.14 Personal history of Methicillin resistant Staphylococcus aureus infection; Z79.01 Long term (current) use of anticoagulants; Z79.84 Long term (current) use of oral hypoglycemic drugs
CPT/HCPCS: 36415; 71045; 74018; 74176; 76705; 80048; 80053; 80061; 80202; 81001; 82565; 82962; 83605; 83690; 83735; 84484; 85025; 85610; 85652; 85730; 86850; 86900; 86901; 87040; 87077; 87081; 87086; 87088; 87186; 87205; 87426; 93005; 93970; 97110; 97116; 97163; 97530; G0378; J0696; J1335; J1815; J1885; J1956; J2185; J2248; J2405; J7060